=== PATIENT | male | born 1950 | race Caucasian/White ===

== ENCOUNTER 2017-01-13 12:59 | Emergency (ER) | payer MEDICARE, OTHER ==
[2017-01-13] MEDS ORDERED: LIDOCAINE-MPF 1% 5 ML VIAL ONE (14:19)
[2017-01-13] MEDS ORDERED: LIDOCAINE 1%-EPI 1:100000 20 ML MDV ONE (14:21)
[2017-01-13] MEDS: LIDOCAINE 1%-EPI 1:100000 20 ML MDV SUBQ STA (14:25)
== END 2017-01-13 15:10 | disposition home or self-care (01) ==
DX: S61.412A Laceration without foreign body of left hand, initial encounter (principal); W27.1XXA Contact with garden tool, initial encounter; Y92.009 Unspecified place in unspecified non-institutional (private) residence as the place of occurrence of the external cause; Z79.82 Long term (current) use of aspirin

== ENCOUNTER 2017-01-17 13:38 | Emergency (ER) | payer MEDICARE, OTHER ==
[2017-01-17] MEDS ORDERED: ceFAZolin 1 GM VIAL IM STA (14:00)
[2017-01-17] MEDS ORDERED: ceFAZolin 1 GM VIAL ONE (14:05)
[2017-01-17] MEDS ORDERED: WATER FOR INJECTION,STERILE 10 ML ONE (14:06)
== END 2017-01-17 14:36 | disposition home or self-care (01) ==
DX: S61.412D Laceration without foreign body of left hand, subsequent encounter (principal); L08.9 Local infection of the skin and subcutaneous tissue, unspecified; W27.1XXD Contact with garden tool, subsequent encounter; Y92.017 Garden or yard in single-family (private) house as the place of occurrence of the external cause; Z86.010 Personal history of colon polyps; Z79.82 Long term (current) use of aspirin

== ENCOUNTER 2017-01-18 09:51 | Emergency (ER) | payer MEDICARE, OTHER | END 2017-01-18 11:21 | disposition home or self-care (01) | DX: S61.412D Laceration without foreign body of left hand, subsequent encounter (principal); L08.9 Local infection of the skin and subcutaneous tissue, unspecified; W27.1XXD Contact with garden tool, subsequent encounter; Y92.017 Garden or yard in single-family (private) house as the place of occurrence of the external cause; Z86.010 Personal history of colon polyps; Z79.82 Long term (current) use of aspirin ==

== ENCOUNTER 2017-02-03 09:41 | Outpatient (CLI) | payer MEDICARE, OTHER | END 2017-02-03 09:42 | disposition home or self-care (01) | DX: E78.00 Pure hypercholesterolemia, unspecified (principal); R03.0 Elevated blood-pressure reading, without diagnosis of hypertension ==

== ENCOUNTER 2020-11-20 10:47 | Emergency (ER) | payer MEDICARE, OTHER ==
[2020-11-20 10:56] VITALS: BP 181/85
--- NOTE | 2020-11-20 11:26 | XRAY Report ---
PROCEDURE: Ankle 3 View RT INDICATIONS: fall, ankle pain TECHNIQUE: 3 views of the ankle were acquired. COMPARISON: None FINDINGS: Bones: No fractures or dislocations. Ankle mortise is normally aligned. No suspicious bony lesions . Small plantar calcaneal spur. Soft tissues: No tibiotalar joint effusion. Achilles tendon appears normal. Vascular calcifications . IMPRESSION: No fracture or dislocation identified. If clinically indicated consider follow-up radiographs in 10-14 days. Reviewed by: Salvador Alicea MD on 11/20/2020 11:25 AM [facility] Approved by: Salvador Alicea MD on 11/20/2020 11:25 AM [facility] Station ID: [id number]
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
== END 2020-11-20 12:15 | disposition home or self-care (01) ==
LOC: ED 10:47
DX: S93.401A Sprain of unspecified ligament of right ankle, initial encounter (principal); S90.01XA Contusion of right ankle, initial encounter; X50.1XXA Overexertion from prolonged static or awkward postures, initial encounter; Y93.89 Activity, other specified; Y92.009 Unspecified place in unspecified non-institutional (private) residence as the place of occurrence of the external cause
CPT/HCPCS: 99283

== ENCOUNTER 2021-03-10 10:52 | Outpatient (CLI) | payer MEDICARE, OTHER ==
[2021-03-10 15:38] LABS: ALBUMIN 4.6 g/dL (3.2-5.5); ALBUMIN/GLOBULIN RATIO 1.2 (1.0-2.2); ALKALINE PHOSPHATASE 70 IU/L (42-121); ALT ALANINE AMINOTRANSFERASE 48 IU/L (10-60); AST ASPARTATE AMINOTRANSFERASE 45 IU/L (10-42); BILIRUBIN,TOTAL 1.3 mg/dL (0.2-1.0); BUN - BLOOD UREA NITROGEN 14 mg/dL (6-20); CALCIUM 9.6 mg/dL (8.5-10.3); CARBON DIOXIDE - CO2 28 mmol/L (21-32); CHLORIDE 99 mmol/L (101-111); CHOL/HDL RATIO 2.1 (<5.0); CHOLESTEROL 240 mg/dL; CREATININE 0.8 mg/dL (0.6-1.2); GFR - MDRD 95 (>89); GLUCOSE 100 mg/dL (70-100); HDL CHOLESTEROL 115 mg/dL; LDL CHOLESTEROL,CALCULATED 113 mg/dL; POTASSIUM 5.1 mmol/L (3.5-5.0); SODIUM 138 mmol/L (135-145); TOTAL PROTEIN 8.3 g/dL (6.7-8.2); TRIGLYCERIDES 62 mg/dL; VLDL CHOLESTEROL 12 mg/dL
[2021-03-10 15:51] LABS: THYROID STIMULATING HORMONE 2.83 uIU/mL (0.34-5.60)
== END 2021-03-10 10:53 | disposition home or self-care (01) ==
LOC: LAB.S 10:52
PROVIDERS: ATTEND Internal Medicine
DX: I10 Essential (primary) hypertension (principal); Z12.5 Encounter for screening for malignant neoplasm of prostate; Z13.6 Encounter for screening for cardiovascular disorders; Z13.1 Encounter for screening for diabetes mellitus; Z13.220 Encounter for screening for lipoid disorders
CPT/HCPCS: 36415; 80053; 80061; 84443; G0103; 83721; 84153